=== PATIENT | male | born 1935 | race Caucasian/White ===

== ENCOUNTER 2017-01-27 08:18 | Day surgery (SDC) | payer MEDICARE, OTHER ==
[2017-01-27] VITALS (8 sets, daily range): BP systolic 127–153; BP diastolic 76–99; PULSE 67–85; RESP 20; TEMP 97.7–97.8; O2SAT 93–95
[~2017-01-27] VITALS: Ht 177.8 cm; Wt 86.8 kg
[~2017-01-27 08:18] MED LIST: ASPI81TA81 PO; BUTATAB6 PO; BUTR10DI T-DERMAL; CARD300C5 PO; CHOL1CAP14 PO; FLUTI110I INH; HYDR10TA65 PO; HYDR12.57 PO; MULTTAB12 PO; OMEG12002 PO; PROB1TAB PO; TIRO150C PO; VENTAER INH; ZOFR8TAB4 SL; [UNRECOGNIZED DRUG - CODE] PO
[2017-01-27] MEDS ORDERED: DILT1TAB22 PO (08:43)
[2017-01-27] MEDS ORDERED: VITA500T4 PO (08:43)
[2017-01-27] MEDS ORDERED: SODIUM CHLOR 0.9% 1000 ML IV SCH (09:00)
[2017-01-27] MEDS ORDERED: LIDOCAINE HCL 1% 20 ML VIAL ONE (10:56)
[2017-01-27] MEDS ORDERED: MIDAZOLAM HCL 5 MG/5 ML VIAL ONE (11:36)
[2017-01-27] MEDS ORDERED: fentaNYL CITRATE 250 MCG/5 ML AMP ONE (11:37)
--- NOTE | 2017-01-27 12:43 | RADRPT ---
EXAM DATE/TIME: 01/27/2017 11:40 [facility] COMPARISON: No previous studies available for comparison. Prior outside chest CT was reviewed. INDICATIONS : Right pleural mass. SEDATION TIME: 30 minutes BIOPSY SITE: Right pleural mass MEDICATION(S): 1.) 2 mg midazolam (Versed) IV 2.) 100 mcg fentanyl (Sublimaze) IV DEVICE(S): 1.) 18 gauge Alexander blunt needle 2.) 20 gauge Temno core biopsy needle MEDICAL HISTORY : Chronic obstructive pulmonary disease. Hypertension. prostate cancer SURGICAL HISTORY : None. ENCOUNTER: Initial ACUITY: 1 day PAIN SCORE: 0/10 LOCATION: Right upper chest A total of five core specimen(s) were obtained and sent to the laboratory for pathologic evaluation. PROCEDURE: 1. CT guided pleural right biopsy. 2. Conscious sedation with continuous EKG and oximetry monitoring. 3. EKG and oximetry remained stable throughout the procedure. Prior to the procedure informed consent was obtained. The patient's prior outside chest CT was review ed. Using automated exposure control and adjustment of the mA and/or kV according to patient size, radiat ion dose was kept as low as reasonably achievable to obtain optimal diagnostic quality images. The site was prepped in a sterile fashion. Full sterile technique was used, including cap, mask, aroldo rile gloves and gown and a large sterile sheet. Hand hygiene and 2% chlorhexidine and/or betadine/al cohol prep was utilized per protocol for cutaneous antisepsis. The skin and subcutaneous tissues wer e infiltrated with local anesthetic solution. With CT guidance the pleural based densely calcified mass was localized in the superior right hemitho rax. Biopsy was performed using the prescribed needle as above. Adequate hemostasis was obtained wit h compression at the puncture site.Follow-up CT scan reveals no hemorrhage or pneumothorax. There is trace pleural air. The patient tolerated the procedure well and there were no complications. The patient was returned to the Radiology Outpatient Unit in stable condition. CONCLUSION: Uncomplicated CT guided biopsy of a pleural-based calcified mass in the superior right hemithorax. Manuel Dangelo MD on January 27, 2017 at 12:40 Board Certified Radiologist. This report was verified electronically.
[2017-01-27] MEDS ORDERED: oxyCODONE/ACETAMINOPHEN 5 MG/325 MG TAB PO PRN (13:00)
--- NOTE | 2017-01-27 13:57 | RADRPT ---
EXAM DATE/TIME: 01/27/2017 13:26 [facility] COMPARISON: CHEST SINGLE AP, August 15, 2013, 5:56. CT NEEDLE BIOPSY PLEURA, RIGHT, January 27, 2017, 11:40. INDICATIONS : Status post right lung biopsy. MEDICAL HISTORY : Hypertension. Chronic obstructive pulmonary disease. SURGICAL HISTORY : Pacemaker. ENCOUNTER: Subsequent ACUITY: 1 day PAIN SCORE: 2/10 LOCATION: Right shoulder. FINDINGS: No evidence of pneumothorax. There is a partially calcified pleural-based mass in the right upper shelby g which is unchanged compared to the prior chest x-ray. Chronic interstitial changes bilaterally. Hea rt size is stable. Left-sided pacemaker. CONCLUSION: No pneumothorax. Delta Morrissey MD on January 27, 2017 at 13:55 Board Certified Radiologist. This report was verified electronically.
--- NOTE | 2017-01-27 15:25 | RADRPT ---
EXAM DATE/TIME: 01/27/2017 14:37 [facility] COMPARISON: CHEST EXPIRATION ONLY, January 27, 2017, 13:26. INDICATIONS : Status post right lung biopsy. MEDICAL HISTORY : Hypertension. Chronic obstructive pulmonary disease SURGICAL HISTORY : Pacemaker. ENCOUNTER: Subsequent ACUITY: 1 day PAIN SCORE: 2/10 LOCATION: Right chest FINDINGS: Portable upright expiratory view of the chest demonstrates no pneumothorax following biopsy of the pl eural-based calcified mass in the superior right hemithorax. CONCLUSION: No pneumothorax. Manuel Dangelo MD on January 27, 2017 at 15:22 Board Certified Radiologist. This report was verified electronically.
== END 2017-01-27 15:55 | disposition home or self-care (01) ==
LOC: HRAD 08:18 → HRIP 08:19 → HRAD 15:55
PROVIDERS: ATTEND Family Medicine
DX: R91.8 Other nonspecific abnormal finding of lung field (principal); I10 Essential (primary) hypertension; J44.9 Chronic obstructive pulmonary disease, unspecified
CPT/HCPCS: 32400; 71010; 77012; 88305; 99152; 99153; J2250; J3010; 88313

== ENCOUNTER → 2017-01-28 | Outpatient (CLI) | payer MEDICARE, OTHER ==
[~2017-01-28] MED LIST changes: -CARD300C5 PO; +DILT1TAB22 PO; -FLUTI110I INH; -OMEG12002 PO; -VENTAER INH; +VITA500T4 PO; -ZOFR8TAB4 SL; -[UNRECOGNIZED DRUG - CODE] PO
--- NOTE | 2017-01-28 12:42 | RADRPT ---
EXAM DATE/TIME: 01/28/2017 11:24 [facility] COMPARISON: No previous studies available for comparison. INDICATIONS : Short of breath. Patient had lung biopsy yesterday. MEDICAL HISTORY : Chronic obstructive pulmonary disease. Hypertension. prostate cancer SURGICAL HISTORY : None. ENCOUNTER: Initial ACUITY: 1 day PAIN SCORE: 0/10 LOCATION: Bilateral chest FINDINGS: There is a bi-lead pacemaker in place from the left subclavian approach. The heart size is normal. Th ere is a peripheral mass seen at the superior posterior lateral right chest. A pneumothorax is not se en. The lungs are fairly clear. There is a dextrocurvature of the thoracic spine. Spurs are seen in t he thoracic spine. CONCLUSION: No acute abnormality is seen. There is a mass at the right upper chest. Manuel Montelongo MD on January 28, 2017 at 12:36 Board Certified Radiologist. This report was verified electronically.
== END ==
LOC: HRAD 11:07
PROVIDERS: ATTEND Radiology Body Imaging
DX: R06.02 Shortness of breath (principal)
CPT/HCPCS: 71020

== ENCOUNTER 2018-08-22 05:45 | Inpatient (IN) ==
[2018-08-22 06:20] LABS: Baso % (Auto) 0.5 % (0.0-2.0); Eos # (Auto) 0.2 th/mm3 (0.0-0.4); Eos % (Auto) 3.7 % (0.0-4.0); Hemoglobin 12.7 gm/dL (13.0-17.0); Lymph # (Auto) 1.9 th/mm3 (1.0-4.8); Lymph % (Auto) 34.4 % (9.0-44.0); Mean Corpuscular HGB Conc 35.3 % (32.0-36.0); Mean Corpuscular Hemoglobin 35.2 pg (27.0-34.0); Mean Corpuscular Volume 99.7 fL (80.0-100.0); Mean Platelet Volume 8.6 fL (7.0-11.0); Mono # (Auto) 0.7 th/mm3 (0.0-0.9); Mono % (Auto) 12.9 % (0.0-8.0); Neut # (Auto) 2.7 th/mm3 (1.8-7.7); Neut % (Auto) 48.5 % (16.0-70.0); Platelet Count 187 th/mm3 (150-450); Red Blood Count 3.61 mil/mm3 (4.50-5.90); Red Cell Distribution Width 13.5 % (11.6-17.2); White Blood Count 5.5 th/mm3 (4.0-11.0)
[2018-08-22 06:26] LABS: Activated Partial Thrombo Time 23.9 sec (23.4-31.7); INR 1.1 Ratio; Prothrombin Time 10.7 sec (9.8-11.6)
--- NOTE | 2018-08-22 06:33 | ED ---
HPI General Chief Complaint: Chest Pain Stated Complaint: chest pain Time Seen by Provider: 08/22/18 05:51 Source: patient and EMS Mode of arrival: EMS Limitations: no limitations History of Present Illness HPI narrative: 83-year-old male patient with history of pacemaker, A. fib status post ablation, hypertension, COPD, presents to the ER today because he started having mid back pains with radiation to the chest that started last night. He states that it was sort of sudden and initiation and is currently a 5 out of 10, constant. He does not know of any alleviating or exacerbating factors. He denies any shortness of breath but states he does have some nausea. Modifying Factors: None Associated Signs & Symptoms: Back pains with radiation to the chest Risk Factors: None Related Data Home Medications Medication Instructions Recorded Confirmed albuterol sulfate 2 puff INHALATION Q6H PRN 05/21/18 08/22/18 aspirin [Aspirin Low Dose] 81 mg PO DAILY 05/21/18 08/22/18 buprenorphine [Butrans] 1 patch TRANSDERMAL QWEEK 05/21/18 08/22/18 [id number] 1 cap PO HS PRN 05/21/18 08/22/18 [Fioricet] cholecalciferol (vitamin D3) 5,000 unit PO DAILY 05/21/18 08/22/18 [Vitamin D3] cyanocobalamin (vitamin B-12) 500 mcg PO DAILY 05/21/18 08/22/18 denosumab [Prolia] 60 mg SUB-Q [id number] 05/21/18 08/22/18 diltiazem HCl 300 mg PO DAILY 05/21/18 08/22/18 fluticasone-salmeterol [Advair 1 inh INHALATION BID 05/21/18 08/22/18 Diskus] hydrochlorothiazide 25 mg PO DAILY 05/21/18 08/22/18 levothyroxine 125 mcg PO DAILY 05/21/18 08/22/18 multivitamin 1 tab PO DAILY 05/21/18 08/22/18 prednisone 5 mg PO BID 05/21/18 08/22/18 Allergies Allergy/AdvReac Type Severity Reaction Status Date / Time clonazepam Allergy Severe Confusion Verified 05/21/18 10:07 hydromorphone Allergy Severe Hallucinati Verified 09/21/18 10:07 ons penicillin G Allergy Severe FLULIKE Verified 05/21/18 10:07 SYMPTOMS Ubqvxka-Ecr-Khv Reductase Allergy Unknown Unknown Verified 05/21/18 10:07 Inhibitor Review of Systems ROS: all other systems reviewed are negative [facility] Medical History Medical History Adrenal insufficiency (Acute) Allergic asthma (Acute) Allergic rhinitis (Acute) Aortic stenosis (Acute) COPD (chronic obstructive pulmonary disease) (Acute) Chronic insomnia (Acute) Degenerative disc disease (Acute) Hiatal hernia (Acute) History of TIA (transient ischemic attack) (Acute) History of colonic polyps (Acute) History of peptic ulcer disease (Acute) Hypertension (Acute) Hypothyroidism (Acute) Lipomatosis (Acute) Lumbar spondylosis (Acute) Osteoporosis (Acute) Pacemaker (Acute) Prostate cancer (Acute) Spinal stenosis (Acute) Surgical History Surgical History History of cataract removal with insertion of prosthetic lens (Acute) History of tonsillectomy and adenoidectomy (Acute) S/P dilatation of esophageal stricture (Acute) Status post ablation of atrial fibrillation (Acute) Social History Social History Second Hand Smoke Exposure: No Smoking Status: Never smoker How Often Do You Have a Drink Containing Alcohol: Never Recent Travel in [facility] within the Last 8 Weeks: No Recent Out of Country Travel within the Last 8 Weeks: No Immunization History Tetanus Immunization: Unsure Exam Narrative Exam Narrative: GENERAL: Well-developed elderly white male patient currently and moderate distress. Awake and oriented x3. SKIN: Focused skin assessment warm/mildly diaphoretic. HEAD: Atraumatic. Normocephalic. EYES: Pupils equal and round. No scleral icterus. No injection or drainage. ENT: No nasal bleeding or discharge. Mucous membranes pink and moist. NECK: Trachea midline. No JVD. CARDIOVASCULAR: Regular rate and rhythm. No murmur appreciated. Pulses are present and equal bilaterally. RESPIRATORY: No accessory muscle use. Clear to auscultation. Breath sounds equal bilaterally. GASTROINTESTINAL: Abdomen soft, non-tender, nondistended. Hepatic and splenic margins not palpable. MUSCULOSKELETAL: No obvious deformities. No clubbing. No cyanosis. No edema. NEUROLOGICAL: Awake and alert. No obvious cranial nerve deficits. Motor grossly within normal limits. Normal speech. PSYCHIATRIC: Appropriate mood and affect; insight and judgment normal. Course Consultations Consultation #1: dr ricks agrees to observation Initial Documented Vital Signs Temperature 97.5 F L 08/22/18 05:47 Pulse Rate 70 08/22/18 05:47 Respiratory Rate 16 08/22/18 05:47 Blood Pressure 156/93 H 08/22/18 05:47 Pulse Oximetry 95 08/22/18 05:47 Last Documented Vital Signs Temperature 97.5 F L 08/22/18 05:47 Pulse Rate 70 08/22/18 09:56 Respiratory Rate 22 08/22/18 09:56 Blood Pressure 215/106 H 08/22/18 09:56 Pulse Oximetry 96 08/22/18 09:56 Sign Out Sign Out Data: Patient Sign Out occurred on 08/22/18 at 07:12. Patient's care was discussed, and care was transferred from Sindi Menchaca MD to Zakia Krishnamurthy MD. Sign Out Comment: CTA is ordered for the patient. Planning to admit for further evaluation. Case is signed out to oncoming physician at 7 AM. Last updated by Sindi Menchaca MD at 08/22/18 06:48 Post-Handoff Eval: CTA shows masses on his chest which are likely chronic and will need to be followed up outpatient. There is no dissection. There is chronic compression deformity at L3. Patient notes pain mainly to his low back that rotates around to his upper abdomen. Will discuss with his primary care physician about observation for cardiac markers and pain control of intractable back pain Medical Decision Making MDM Narrative Medical decision making narrative: Chest x-ray did not show any signs of acute pulmonary processes. Cardiac enzymes are negative. Patient was given aspirin and nitroglycerin by EMS. In the ER, he reported further chest pains and nausea and additional nitroglycerin as well as Zofran was given. he is appearing more diaphoretic in the ER and considering his type of pain, a CTA was ordered to rule out dissection. Planning to admit for further evaluation. Medical Screen Exam Complete: Yes Emergency Medical Condition: Yes Differential Diagnosis Differential Diagnosis: ACS versus dysrhythmias versus muscular skeletal versus aortic dissection Lab Data Lab results reviewed: Yes I reviewed the patient's lab results. Result diagrams: 08/22/18 06:00 08/22/18 06:00 Lab Results 08/22/18 08/22/18 08/22/18 Range/Units 06:00 06:00 06:00 WBC 5.5 (4.0-11.0) th/mm3 RBC 3.61 L (4.50-5.90) mil/mm3 Hgb 12.7 L (13.0-17.0) gm/dL Hct 36.0 L (39.0-51.0) % MCV 99.7 (80.0-100.0) fL MCH 35.2 H (27.0-34.0) pg MCHC 35.3 (32.0-36.0) % RDW 13.5 (11.6-17.2) % Plt Count 187 (150-450) th/mm3 MPV 8.6 (7.0-11.0) fL Neut % (Auto) 48.5 (16.0-70.0) % Lymph % (Auto) 34.4 (9.0-44.0) % Billings % (Auto) 12.9 H (0.0-8.0) % Eos % (Auto) 3.7 (0.0-4.0) % Baso % (Auto) 0.5 (0.0-2.0) % Neut # (Auto) 2.7 (1.8-7.7) th/mm3 Lymph # (Auto) 1.9 (1.0-4.8) th/mm3 Billings # (Auto) 0.7 (0.0-0.9) th/mm3 Eos # (Auto) 0.2 (0.0-0.4) th/mm3 Baso # (Auto) 0.0 (0.0-0.2) th/mm3 WBC Differential . Differential Comment Auto diff final PT 10.7 (9.8-11.6) sec INR 1.1 Ratio APTT 23.9 (23.4-31.7) sec Sodium 143 (136-145) meq/L Potassium 3.4 L (3.5-5.1) meq/L Chloride 103 (98-107) meq/L Carbon Dioxide 32.4 H (21.0-32.0) meq/L Anion Gap 8 (5-15) meq/L BUN 23 H (7-18) mg/dL Creatinine 0.99 (0.60-1.30) mg/dL Estimated GFR 72 L (>89) mL/min Random Glucose 111 H (74-106) mg/dL Calcium 9.1 (8.5-10.1) mg/dL Total Bilirubin 0.4 (0.2-1.0) mg/dL Direct Bilirubin (0.0-0.2) mg/dL Indirect Bilirubin (0.0-0.8) mg/dL AST 32 (15-37) U/L ALT 38 (12-78) U/L Alkaline Phosphatase 36 L (45-117) U/L Total Creatine Kinase (39-308) U/L Troponin I 0.04 (0.02-0.05) ng/mL Total Protein 6.6 (6.4-8.2) g/dL Albumin 3.6 (3.4-5.0) g/dL Lipase (73-393) U/L 08/22/18 08/22/18 Range/Units 06:00 06:00 WBC (4.0-11.0) th/mm3 RBC (4.50-5.90) mil/mm3 Hgb (13.0-17.0) gm/dL Hct (39.0-51.0) % MCV (80.0-100.0) fL MCH (27.0-34.0) pg MCHC (32.0-36.0) % RDW (11.6-17.2) % Plt Count (150-450) th/mm3 MPV (7.0-11.0) fL Neut % (Auto) (16.0-70.0) % Lymph % (Auto) (9.0-44.0) % Bill[place] % (Auto) (0.0-8.0) % Eos % (Auto) (0.0-4.0) % Baso % (Auto) (0.0-2.0) % Neut # (Auto) (1.8-7.7) th/mm3 Lymph # (Auto) (1.0-4.8) th/mm3 Billings # (Auto) (0.0-0.9) th/mm3 Eos # (Auto) (0.0-0.4) th/mm3 Baso # (Auto) (0.0-0.2) th/mm3 WBC Differential Differential Comment PT (9.8-11.6) sec INR Ratio APTT (23.4-31.7) sec Sodium (136-145) meq/L Potassium (3.5-5.1) meq/L Chloride (98-107) meq/L Carbon Dioxide (21.0-32.0) meq/L Anion Gap (5-15) meq/L BUN (7-18) mg/dL Creatinine (0.60-1.30) mg/dL Estimated GFR (>89) mL/min Random Glucose (74-106) mg/dL Calcium (8.5-10.1) mg/dL Total Bilirubin 0.4 (0.2-1.0) mg/dL Direct Bilirubin 0.1 (0.0-0.2) mg/dL Indirect Bilirubin 0.3 (0.0-0.8) mg/dL AST 33 (15-37) U/L ALT 40 (12-78) U/L Alkaline Phosphatase 37 L (45-117) U/L Total Creatine Kinase 307 Cancelled (39-308) U/L Troponin I (0.02-0.05) ng/mL Total Protein 6.7 (6.4-8.2) g/dL Albumin 3.7 (3.4-5.0) g/dL Lipase 141 (73-393) U/L Imaging Data Attestation: I personally reviewed and interpreted this imaging study as follows : Radiologist's impression: Chest X-Ray 08/22/18 05:51 CONCLUSION: Stable single view the chest. No infiltrate or mass Thoracic Aorta CT 08/22/18 06:31 CONCLUSION: 1. Atherosclerotic change seen throughout the arterial system without a significant aneurysm or dissection seen. 2. 1.2 cm mass in the left lower lobe. There is also a smaller mass in the inferior right upper lobe. The 1.2 cm left lower lobe mass was present on prior CT examination from 2016. One could consider continued surveillance with noncontrast CT examination versus a PET scan at some point. 3. Multiple pleural plaques with coarse calcifications. The largest mass measures up to 5.9 cm. This is clearly increased in size since the prior exam. 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 The enlargement of the visualized mass confirms progression. 4. Persistent compressive changes at the L3 vertebral body. There is degenerative change in the lumbar spine. ECG Data Attestation: I personally reviewed and interpreted this ECG as follows: Interpretation: EKG shows paced rhythm at a rate of 70 bpm. Discharge Plan Discharge Disposition Patient Disposition: ED Admit(ED Internal Use Only) Discharge Order Discharge Orders: ED Use Only Admit Order (Routine); Ordered 08/22/18 Ordered By: Zakia Krishnamurthy Discharge Details Diagnosis: Atypical chest pain Physicians Team ED Provider: Zakia Krishnamurthy Primary Care Provider: Owen Ricks Rxs /Orders / Referrals /Forms Prescriptions: No Action multivitamin Tablet 1 tab PO DAILY RF: 0 fluticasone-salmeterol [Advair Diskus] 250-50 mcg/dose Blister With Device 1 inh INHALATION BID RF: 0 prednisone 5 mg Tablet 5 mg PO BID RF: 0 diltiazem HCl 300 mg Capsule,Extended Release 24 Hr 300 mg PO DAILY RF: 0 aspirin [Aspirin Low Dose] 81 mg Tablet,Delayed Release (Dr/Ec) 81 mg PO DAILY RF: 0 cyanocobalamin (vitamin B-12) 500 mcg Tablet 500 mcg PO DAILY RF: 0 levothyroxine 125 mcg Tablet 125 mcg PO DAILY RF: 0 hydrochlorothiazide 25 mg Tablet 25 mg PO DAILY RF: 0 albuterol sulfate 90 mcg/actuation Hfa Aerosol Inhaler 2 puff INHALATION Q6H PRN (Reason: Shortness Of Breath) RF: 0 cholecalciferol (vitamin D3) [Vitamin D3] 5,000 unit Tablet 5,000 unit PO DAILY RF: 0 denosumab [Prolia] 60 mg/mL Syringe 60 mg SUB-Q [id number] RF: 0 buprenorphine [Butrans] 10 mcg/hour Patch Weekly 1 patch TRANSDERMAL QWEEK RF: 0 [id number] [Fioricet] 50-300-40 mg Capsule 1 cap PO HS PRN (Reason: Pain) RF: 0 Discharge Instructions Patient Printed Instructions: Chest Pain (ED) Status ED Status: Admitted Observation Patient
[2018-08-22 06:38] LABS: Albumin 3.6 g/dL (3.4-5.0); Anion Gap 8 meq/L (5-15); Aspartate Aminotransferase 32 U/L (15-37); Blood Urea Nitrogen 23 mg/dL (7-18); Calcium 9.1 mg/dL (8.5-10.1); Carbon Dioxide 32.4 meq/L (21.0-32.0); Chloride 103 meq/L (98-107); Glomerular Filtration Rate 72 mL/min (>89); Glucose,Random 111 mg/dL (74-106); Potassium 3.4 meq/L (3.5-5.1); Sodium 143 meq/L (136-145)
[2018-08-22 06:39] LABS: Alanine Aminotransferase 38 U/L (12-78)
[2018-08-22 06:43] LABS: Alkaline Phosphatase 36 U/L (45-117); Total Protein 6.6 g/dL (6.4-8.2); Troponin I 0.04 ng/mL (0.02-0.05)
--- NOTE | 2018-08-22 06:43 | XR ---
EXAM DATE: 08/22/2018 6:17 AM EST AGE/SEX: 83 years / Male INDICATIONS: Chest and back pain suddenly this morning. CLINICAL DATA: This is the patient's initial encounter. Patient reports that signs and symptoms have been present for 1 day and indicates a pain score of 10/10. MEDICAL/SURGICAL HISTORY: Chronic obstructive pulmonary disease. Hypertension. Hypothyroidism . Asthma. Aortic stenosis. Hiatal hernia. Degenerative disc disease. Colonic polyps. Peptic ulcer di sease. TIA. Lumbar spondylosis. Prostate Cancer. Spinal stenosis. Pacemaker. Tonsillectomy. Catarac t removal. Dilitation of esophageal stricture. Cardiac ablation. COMPARISON: [facility], XR CHEST UPRIGHT, SINGLE VIEW, 03/16/2018. . FINDINGS: A single AP view of the chest demonstrates the lungs to be symmetrically aerated without evidence of mass, infiltrate or effusion. The cardiomediastinal contours are unremarkable. Osseous structures a re intact. Pleural-based density in the right upper lobe is unchanged. Left subclavian dual lead pace r in good position. There is quite tortuous CONCLUSION: Stable single view the chest. No infiltrate or mass Electronically signed by: Eliseo Hernandez MD Board Certified Radiologist 08/22/2018 6:42 AM EST
[2018-08-22] MEDS ORDERED: Morphine Sulfate Inj 2 MG/ML Vial IV.PUSH ONE (06:50)
[2018-08-22] MEDS ORDERED: Morphine Inj 4 MG/ML Vial IV.PUSH ONE ×2 (07:15→10:15)
--- NOTE | 2018-08-22 09:11 | CT ---
EXAM DATE: 08/22/2018 8:37 AM EST AGE/SEX: 83 years / Male INDICATIONS: Mid back pain radiating to chest CLINICAL DATA: This is the patient's initial encounter. Patient reports that signs and symptoms have been present for 1 day and indicates a pain score of 6/10. MEDICAL/SURGICAL HISTORY: Chronic obstructive pulmonary disease. Hiatal hernia. Transient ischemi c attack. Aortic Stenosis, Peptic Ulcer, Hypertension, Hypothyroid, Prostate Cancer Pacemaker. Ton sillectomy. RADIATION DOSE: 9.13 CTDI (mGy) COMPARISON: [facility], CT ABDOMEN AND PELVIS W/ CONTRAST, 04/23/2018. POI, CT THORACIC SPINE W/O CONTR AST, 04/10/2016. . TECHNIQUE: Volumetric scanning was performed using a multi-row detector CT scanner during bolus infu yoly of 100ML ml Omnipaque 350 (iohexol) nonionic water-soluble contrast as a single exam dose. The data was post processed with a variety of visualization algorithms including full volume maximum int ensity projection, multi-planar sliding thin slab reformation, curved planar reformation, and surface rendering techniques. Using automated exposure control and adjustment of the mA and/or kV according to patient size, radiation dose was kept as low as reasonably achievable to obtain optimal diagnosti c quality images. DICOM format image data is available electronically for review and comparison. FINDINGS: Lungs: There is a 1.2 cm mass seen in the posterior medial left lower lobe. This was present on prio r CT of the thoracic spine performed on 04/10/2016 and does not appear significantly changed in size o r configuration. There is also a small 3 mm nodule seen in the anterior lateral inferior aspect of th e right upper lobe just above the minor fissure. No possible masses are seen within the lungs. There are multiple pleural-based masses with coarse calcifications seen in the right upper and midlung. The largest pleural-based calcified mass is seen at the posterior lateral right upper chest measuring 5. 6 x 2.7 x 5.9 cm. There also appears to be a smaller pleural-based mass at the superior medial left u pper lobe. There is ill-defined increased density seen at the posterior lower lobes bilaterally being more prominent on the right likely related to atelectasis. There is some thickening of the inferior aspect of the major fissures. Mediastinum: No abnormally enlarged lymph nodes by CT criteria. No axillary or hilar abnormalities a re identified. There is a pectus Ethibond deformity of the sternum. Abdomen: The liver and spleen are free of focal defects. The gallbladder and pancreas demonstrate no abnormality. The adrenal glands are normal. The kidneys demonstrate no evidence of solid renal mass or hydronephrosis. No free fluid or abdominal masses are identified. No para-aortic adenopathy is see n. Scattered colonic diverticula are seen particularly in the sigmoid colon. There is chronic sanju sive changes at the L3 vertebral body. These were present on the prior CT examination from 04/23/2018. There is degenerative change in the lumbar spine. Pelvis: No evidence of free fluid or pelvic mass. No abnormally enlarged inguinal or retroperitoneal lymph nodes are present. The bladder is unremarkable. There appear to be marker seeds in the prostat e. Thoracic Aorta: The thoracic aortic root is normal with normal branching of the great vessels. Ther e is no evidence of aneurysm or dissection. There is increased density seen along the left lateral as pect of the aorta likely related to atherosclerotic change. Scattered atherosclerotic calcifications are seen including calcifications of the coronary arteries. Abdominal Aorta: The aorta is normal in caliber without aneurysm or dissection. The renal arteries are patent bilaterally. The proximal celiac and superior mesenteric arteries are patent and normal i n diameter. Pelvic Vessels: The internal iliac and external iliac vessels are patent without aneurysm or stenosi s. CONCLUSION: 1. Atherosclerotic change seen throughout the arterial system without a significant aneurysm or diss ection seen. 2. 1.2 cm mass in the left lower lobe. There is also a smaller mass in the inferior right upper lobe . The 1.2 cm left lower lobe mass was present on prior CT examination from 2015. One could consider c ontinued surveillance with noncontrast CT examination versus a PET scan at some point. 3. Multiple pleural plaques with coarse calcifications. The largest mass measures up to 5.9 cm. This is clearly increased in size since the prior exam. These could be related to asbestos-related pleura l plaques. The enlargement of the visualized mass confirms progression. 4. Persistent compressive changes at the L3 vertebral body. There is degenerative change in the lumb ar spine. Electronically signed by: Manuel Montelongo MD Board Certified Radiologist 08/22/2018 9:09 AM EST
[2018-08-22] MEDS ORDERED: Ketorolac Inj 30 MG/ML (IVP) Vial IV.PUSH ONE (09:30)
[2018-08-22 10:07] LABS: Alanine Aminotransferase 40 U/L (12-78); Albumin 3.7 g/dL (3.4-5.0); Aspartate Aminotransferase 33 U/L (15-37); Lipase 141 U/L (73-393)
[2018-08-22 10:09] LABS: Alkaline Phosphatase 37 U/L (45-117); Creatine Kinase 307 U/L (39-308); Total Protein 6.7 g/dL (6.4-8.2)
[2018-08-22 10:49] LABS: Bilirubin,Urine Negative (Negative); Clarity,Urine Clear (Clear); Color,Urine Straw (Yellw/Straw); Glucose,Urine (UA) Negative (Negative); Leukocyte Esterase,Urine Negative (Negative); Mucus,Urine Few /lpf (Occasional); Nitrite,Urine Negative (Negative); Specific Gravity,Urine 1.029 (1.002-1.035)
[2018-08-22] MEDS ORDERED: Acetaminophen 325 MG Tablet PO PRN (10:54)
[2018-08-22] MEDS ORDERED: Bisacodyl 10 MG Supp RECTAL PRN (10:54)
[2018-08-22] MEDS ORDERED: Labetalol HCl Inj 100 MG/20 ML Vial IV.PUSH ONE (11:03)
[2018-08-22] MEDS: hydroCHLOROthiazide 25 MG Tablet PO SCH (11:48)
[2018-08-22] MEDS ORDERED: Labetalol HCl Inj 100 MG/20 ML Vial IV.PUSH PRN (11:58)
[2018-08-22] MEDS ORDERED: Hydrocortisone Sod Succinate 100 MG Vial IV.PUSH ONE (12:00)
[2018-08-22] MEDS: Budesonide-Formoterol 160/4.5 MCG 6 GM Inhaler INH SCH ×2 (12:10→21:32)
[2018-08-22] MEDS: dilTIAZem CD 300 MG Capsule PO SCH (12:15)
[2018-08-22] MEDS: Enoxaparin Inj 30 MG/0.3 ML Syringe SQ SCH (12:24)
[2018-08-22] MEDS: Enoxaparin Inj 40 MG/0.4 ML Syringe SQ SCH (12:24)
[2018-08-22] MEDS ORDERED: Morphine Inj 4 MG/ML Vial IV.PUSH PRN (12:34)
[2018-08-22] MEDS ORDERED: IBUPROFEN PO PRN (12:35)
[2018-08-22] MEDS ORDERED: HYDROCODONE PO PRN (12:35)
--- NOTE | 2018-08-22 14:20 | MH ---
cc: Owen Ricks MD DATE OF ADMISSION: 08/22/2018 ADMITTING DIAGNOSES: 1. Hypertensive urgency. 2. Lower chest, epigastric and thoracic back pain. HISTORY OF PRESENT ILLNESS: This 83-year-old white male well known to the undersigned physician has a complex medical history including history of atrial fibrillation, status post coronary ablation, COPD, chronic back pain due to DJD and disk disease and hypothyroidism. The patient states that he awoke around 5 a.m. this morning with severe mid thoracic back pain, which initially was localized to the midline and then over the period of the next couple hours, spread bilaterally and around to the epigastric and lower chest area. The patient had no shortness of breath, diaphoresis, nausea or vomiting initially. He became concerned and contacted EMS and was transferred to this facility for further evaluation and treatment. The patient denies eating any unusual foods. His bowels have been moving regularly with his last bowel movement yesterday. He denies any melena, hematochezia, diarrhea or constipation. He has had no change in his voiding pattern and denies any hematuria. He had some nausea after arriving in the emergency department and states that he caused himself to have a small amount of emesis to relieve the pressure in his epigastric area, which seemed to help somewhat. The patient denies any lightheadedness, dizziness, orthopnea, PND, lower extremity edema. He has had no exertional angina. The patient is followed regularly by Dr. Blackburn for cardiology. In the emergency department, the patient initially had a moderately elevated blood pressure, but his blood pressure has increased dramatically with systolic readings greater than 200. He was given IV Vasotec in the emergency department. He also had persistent pain, which initially was treated with morphine sulfate. He had a total of 8 mg IV with some relief of the pain, but it was still severe with a rating greater than 8. The patient was given Toradol subsequently and he states that he is more comfortable at this point. PAST MEDICAL HISTORY: Significant for a history of prostate cancer. He is status post external beam radiation therapy. Recently, he has had an increasing PSA. He is followed by Dr. Mattson for urology and Dr. Ty for hematology. He has a history of atrial fibrillation and he is status post coronary ablation as well as sick sinus syndrome, status post pacemaker placement, and aortic stenosis. He has a history of allergic rhinitis, hypothyroidism, adrenal insufficiency for which he receives steroids each day, hypertension, COPD, lumbar spondylosis, spinal stenosis and degenerative disk disease, allergic asthma, history of TIA, chronic insomnia, lipomatosis with multiple palpable lipomas, hiatal hernia, history of GERD with esophageal strictures. He had esophageal dilation in 2013. He has a history of peptic ulcer disease as well as colonic polyps and mild atherosclerotic heart disease by cardiac catheterization in 2001. He also has history of osteoporosis for which he receives Prolia injections. He is status post pacemaker placement in 2012, status post tonsillectomy and adenoidectomy, status post left cataract removal with lens implant, status post LASIK procedure years ago and in 2018, he had a right cataract removal with lens implant. CURRENT MEDICATIONS: 1. Vitamin B12 at 500 mcg daily. 2. Vitamin D3 at 5000 international units daily. 3. Advair Diskus 250/50 mcg 1 inhalation twice a day. 4. Alprazolam 0.5 mg 1/2 to 1 tablet at bedtime as needed for insomnia. 5. Levothyroxine 137 mcg daily. 6. Albuterol HFA inhaler 2 puffs every 6 hours as needed for shortness of breath. 7. Butrans patch 10 mcg per hour apply 1 patch weekly. 8. Hydrochlorothiazide 25 mg daily. 9. Prednisone 5 mg twice daily. 10. Prolia 60 mg subcutaneously every 6 months. 11. Diltiazem CD 300 mg 1 capsule daily. 12. Pantoprazole 40 mg daily. 13. Naproxen sodium 220 mg 2 tablets every 12 hours as needed. 14. Fluticasone propionate nasal spray 50 mcg per actuation 2 sprays each nostril daily. 15. Fioricet 1 tablet at bedtime as needed for tension headaches. ALLERGIES: HE HAS MULTIPLE ALLERGIES AND INTOLERANCES, WHICH INCLUDE: 1. INTOLERANCE TO SHINGRIX IMMUNIZATION, WHICH CAUSED NASAL CONGESTION, MYALGIAS, ARTHRALGIAS AND WEAKNESS. 2. ACTONEL CAUSED GI UPSET. 3. ATORVASTATIN CAUSED MYALGIAS. 4. AUGMENTIN AND CEFUROXIME CAUSED NAUSEA AND CHEST TIGHTNESS. 5. CIPROFLOXACIN CAUSED MYALGIAS. 6. CLONAZEPAM CAUSED DIZZINESS. 7. CLONIDINE HAS AN UNKNOWN REACTION. 8. ENALAPRIL CAUSED CHEST PAIN AND SYNCOPE. 9. LOSARTAN CAUSED MYALGIAS. 10. PRAVASTATIN CAUSED BRADYCARDIA. 11. ZETIA CAUSED A RASH. FAMILY HISTORY: Positive for a father with coronary artery disease and a myocardial infarction as well as COPD. His mother had arthritis and hepatic cancer. He has a sibling with prostate cancer and type 2 diabetes. SOCIAL HISTORY: He is . He is retired. He has a previous smoking history, but does not currently smoke. He drinks alcohol occasionally on a social basis. IMMUNIZATION HISTORY: The patient had his pneumococcal vaccination on 04/22/2016. He had an influenza vaccination on 06/28/2018. PHYSICAL EXAMINATION: VITAL SIGNS: Upon arrival to the emergency department, the patient's blood pressure was 156/93 with a heart rate of 70, respirations 16, temperature 97.5 degrees Fahrenheit, oxygen saturation on room air 95%. At the current time, his blood pressure is 187/98 with a heart rate of 70, oxygen saturation on room air 95%. GENERAL: This is an overweight, elderly, white male lying in bed in mild distress due to some epigastric discomfort, but in no respiratory distress. HEENT: The pupils are equal, round and reactive to light. Extraocular movements are intact. Sclerae are anicteric. There are bilateral lens implants in place. Mouth and throat reveal moist mucous membranes. No erythema or exudates. Dentition is good. Tongue midline. NECK: Supple without lymphadenopathy, JVD, bruits or thyromegaly. CARDIOVASCULAR: Regular rate and rhythm with a 2/6 systolic murmur heard best at the right upper sternal border. LUNGS: Clear to auscultation without wheezes, rhonchi or rales, but there is mildly diminished air exchange bilaterally. ABDOMEN: Mildly distended, soft, nontender. Bowel sounds are present. No mass palpable. No hepatosplenomegaly. GENITOURINARY: Deferred. RECTAL: Deferred. LOWER EXTREMITIES: Reveal 2+ pulses. No calf tenderness. No Homans sign. No open areas or bony deformities. BACK AND SPINE: Reveal no palpable tenderness along the spinous processes, disks or paraspinous musculature. NEUROLOGIC: Nonfocal. LABORATORY DATA: The patient's comprehensive metabolic profile was significant for a potassium of 3.4. Carbon dioxide was mildly elevated at 32.4. BUN was high at 23, but creatinine 0.99. The estimated GFR was 72, which was low. Alkaline phosphatase is low at 36. Troponin was normal at 0.04. Total CK was 307, which was normal. CK-MB was 12, which is elevated, but only represents less than 4% of the total. White blood cell count 5.5, hemoglobin 12.7, hematocrit 36.0, platelet count 187,000. White blood count differential showed 48.5 polys, 34.4 lymphocytes and 12.9, monocytes. INR 1.1, aPTT 23.9. Urinalysis revealed a specific gravity of 1.029, pH 7.0, trace ketones, otherwise all the indices were negative. Single view AP chest x-ray revealed a stable single-view chest x-ray. No infiltrates or masses. The patient had a CTA of the thoracic aorta which revealed atherosclerotic changes seen throughout the arterial system without significant aneurysm or dissection. There is a 1.2 cm mass in the left lower lobe of the lung with multiple smaller masses in the inferior right upper lobe. The 1.2 cm left lower lobe mass was present on a prior CT examination from 2016. It is recommended to follow up with a noncontrast CT versus PET scan. There were multiple pleural plaques with coarse calcifications, the largest of which measures 5.9 cm, which have clearly increased in size since prior examination. This could this could be related to asbestos-related pleural plaques. The enlargement of the visualized mass confirms progression and persistent compressive changes of the L3 vertebral body. There are degenerative changes in the lumbar spine. The patient's EKG revealed an atrial paced rhythm. IMPRESSION AND PLAN: 1. This 83-year-old white male presented with a sudden onset of thoracic back pain which radiated to the epigastrium. He required 8 mg of morphine sulfate and Toradol to bring the pain under control. Possible etiologies include choledocholithiasis versus ureterolithiasis versus pancreatitis versus thoracic aortic or abdominal aortic dissection versus atypical presentation of coronary ischemia versus pulmonary embolus. At this point, we have ruled out the possibility of aortic dissection with a CTA. A CT of the chest ruled out pulmonary embolism. He has no evidence of any blood in his urine to indicate a kidney stone or ureteral stone. The patient does not have any discomfort in the right upper quadrant with palpation; however, we will consider an ultrasound of the gallbladder to evaluate further to determine if there is the presence of any stones that were not picked up by the CT scan. The patient did have a lipase performed which was within normal limits, which rules out pancreatitis. At this point, he is more comfortable. It is possible the patient has a gastric or peptic ulcer. He has been on a proton pump inhibitor. We will continue him with a proton pump inhibitor and we will monitor for any worsening of the pain again. If so, we will need to consider a gastrointestinal evaluation and consultation. 2. Hypertensive urgency. The patient's blood pressure was greater than 200 systolic during most of his stay in the emergency department. It is improving at this point. He has received intravenous Vasotec and I have ordered intravenous labetalol. We will monitor closely. We will resume his usual medications and adjust his blood pressure medicine as needed. I have consulted cardiology, Dr. Blackburn, for assistance with evaluation and treatment. With this hypertensive urgency, we will perform serial cardiac enzymes to rule out the possibility of ischemia. The patient's electrocardiograms are not helpful as they chronically reveal an atrial paced rhythm. 3. History of chronic obstructive pulmonary disease. Respiratory status appears to be stable at this point. We will monitor his oxygen saturations. The patient normally receives Advair. I have ordered Advair to be continued. He may be changed to the formulary maintenance inhaler. 4. History of adrenal insufficiency. The patient was in tremendous pain this morning and I was concerned about the possibility of an adrenal crisis from the acute distress. I have given him Solu-Cortef 50 mg intravenous now. We will resume the prednisone and monitor his clinical response. 5. Hypothyroidism. Continue with current dosage of levothyroxine. 6. Hyperlipidemia. The patient does not tolerate any of the statins. He has not been taking them for a number of years due to adverse reactions to all of them. 7. Hypokalemia. The patient will receive an oral potassium supplement. We will monitor potassium level closely. 8. Chronic back pain. The patient has a Butrans patch in place, which has only been in place now for 3 days. At this point, we will have him continue with the patch, which normally controls his pain fairly well. I have explained the plan of care with the patient, who expressed understanding. MD TANJA Borrero/karey , 12:26 PM , 12:49 PM
[2018-08-22 15:12] LABS: Troponin I 0.05 ng/mL (0.02-0.05)
[2018-08-22 15:43] VITALS: RESP 16
--- NOTE | 2018-08-22 16:19 | US ---
EXAM DATE: 08/22/2018 4:10 PM EST AGE/SEX: 83 years / Male INDICATIONS: Abdominal pain. CLINICAL DATA: This is the patient's initial encounter. Patient reports that signs and symptoms have been present for 2 days and indicates a pain score of 3/10. MEDICAL/SURGICAL HISTORY: Chronic obstructive pulmonary disease. Hypertension. Hypothyroidism . Adrenal insufficiency. Rhinitis. Aortic stenosis. Insomnia. Hiatal hernia. Polyps. Peptic ulcer di sease. TIA. Osteoporosis. Prostate cancer. Spinal stenosis. Pacemaker. Tonsillectomy. Cataract jean alisson. Adenoidectomy. Atrial fibrillation ablation. COMPARISON: [facility], CTA THOR ABD AORTA W CONTRAST W 3D, 08/22/2018. . MEASUREMENTS: Liver:__ 16.0 cm. Common Bile Duct:___ 9mm. Right Kidney:___12.0 x 4.8 x 4.6 cm. Left Kidney:___11.8 x 4.5 x 4.8 cm. Spleen:___9.3 cm. FINDINGS: Liver: The liver is mildly enlarged. Normal echogenicity without focal lesion or ductal dilatation. Portal Vein: Hepatopedal flow seen in portal vein. Common Duct: No intraluminal mass or stone visualized. Gallbladder: Cholelithiasis is noted. There is no wall thickening, pericholecystic fluid or sonograph ic Cano's sign. Pancreas: Not well visualized. Right Kidney: Increased echogenicity. No mass or hydronephrosis. Left Kidney: Increased echogenicity. No mass or hydronephrosis. Ascites: None Pleural Effusion: None Spleen: No focal lesion. Aorta: Non aneurysmal. IVC: Within normal limits Other: None. CONCLUSION: 1. Cholelithiasis. 2. Mild hepatomegaly. 3. Echogenic kidneys raising the possibility of medical renal disease. Electronically signed by: Vj Mcclain MD Board Certified Radiologist 08/22/2018 4:18 PM EST
[2018-08-22 19:35] LABS: Troponin I 0.05 ng/mL (0.02-0.05)
[2018-08-22] MEDS: predniSONE 5 MG Tablet PO SCH (21:15)
[2018-08-22] MEDS ORDERED: Petrolatum,White 4 GM STICK TOPICAL PRN (21:41)
--- NOTE | 2018-08-23 00:29 | MB ---
cc: Wily Ewing DO DATE: 08/22/2018 REASON FOR CONSULTATION: Hypertensive urgency, questionable chest pain. HISTORY OF PRESENT ILLNESS: Vj Ramos is a pleasant 83-year-old male who sees my partner Dr. Blackburn in the office and presented to [facility] Emergency Room due to severe mid thoracic back pain. The patient woke up at around 5 a.m. with severe mid thoracic back pain. He states that he was working on a generator the day before and lifting with the handles from the side, and this may have caused the initial back pain. The pain was located in the mid-section and then over a period of the next couple hours spread bilaterally around his flank area and into the epigastric area. On discussing with him, most of the pain that he felt was throughout his lower back, but on the anterior portion of his body, he points to the mid-epigastric and not really to the chest. The patient has no shortness of breath, diaphoresis, nausea or vomiting initially. As the pain was intense, he called EMS and was transferred to the emergency room. He did have some nausea upon arriving in the emergency room. The small amount of emesis did relieve some of the pressure in the epigastric area. As this pain increased his blood pressure dimple over 200. At one point when his blood pressure was significantly elevated, he was starting to feel slightly diaphoretic, and along with the back pain, it was felt that a CTA should be done to rule out a dissection. CTA was negative for a dissection. He received 8 mg of morphine with little relief but was then given Toradol and subsequently felt much better. PAST MEDICAL HISTORY: 1. Mild aortic stenosis by echocardiogram last year. 2. Prostate cancer, status post external beam radiation therapy. 3. History of atrial fibrillation. 4. Hypothyroidism. 5. Adrenal insufficiency. 6. Hypertension. 7. Chronic obstructive pulmonary disease. 8. Lumbar spondylosis. 9. Spinal stenosis with degenerative disk disease. 10. History of TIA. 11. Lipomatosis. 12. Hiatal hernia. 13. Gastroesophageal reflux disease. 14. Osteoporosis. PAST SURGICAL HISTORY: 1. Atrial fibrillation ablation. 2. Pacemaker placement (2012). 3. Esophageal dilatation (2013). 4. Tonsillectomy. 5. Bilateral cataract removal with lens implant. ALLERGIES: 1. CLONAZEPAM. 2. HYDROMORPHONE. 3. PENICILLIN. 4. STATINS. MEDICATIONS: 1. Albuterol 2 puffs every 6 hours as needed. 2. Butrans patch weekly. 3. Aspirin 81 mg daily. 4. Prednisone 5 mg b.i.d. 5. Synthroid 125 mcg daily. 6. Hydrochlorothiazide 25 mg daily. 7. Prolia 60 mg subcutaneously every 6 months. 8. Fioricet 1 cap every night as needed. 9. Advair one inhalation b.i.d. 10. Cardizem CD 300 mg daily. FAMILY HISTORY: Denies premature coronary artery disease or sudden cardiac within the family. SOCIAL HISTORY: The patient is . He has a previous smoking history but quit a number of years ago. He drinks occasionally on a social basis. REVIEW OF SYSTEMS: Fourteen systems were reviewed including osteopathic. Pertinent positives and negatives above, otherwise negative. PHYSICAL EXAMINATION: VITAL SIGNS: Temperature 98.4, heart rate 70, blood pressure 135/79, respirations 16, pulse oximetry 96% on 2 L. GENERAL: The patient appears well, in no acute distress. Alert, awake, and oriented x3. HEENT: Extraocular muscles intact. Mucous membranes moist. NECK: Supple. No JVD at 45 degrees. No carotid bruits heard bilaterally. Carotid upstroke is brisk in nature. HEART: Regular rate and rhythm. Positive first and second heart tones with a 3/6 mid to late peaking crescendo decrescendo murmur to the right sternal border. LUNGS: Clear to auscultation bilaterally. No wheezes, rales, or rhonchi. ABDOMEN: Soft, nontender, nondistended. No organomegaly noted. Lipoma is noted superior to the umbilicus for which the patient states he has multiple lipomas. EXTREMITIES: No clubbing, cyanosis, or edema. Femoral and distal pulses are intact bilaterally. NEUROLOGIC: No focal deficits. SKIN: Warm, dry and intact. OSTEOPATHIC: No kyphoscoliosis, lordosis, or paraspinal tender points. LABORATORY DATA: Hemoglobin 12.7, hematocrit 36.0, platelets 187. Potassium 3.4, BUN 23, creatinine 0.99. Troponin negative x3. Electrocardiogram (08/22/2018 at 0546): Atrial paced with a long AV delay, interventricular conduction delay. No acute ST-T wave changes. Possible old inferior myocardial infarction. Nonspecific ST-T wave changes. No significant change from 2014. IMPRESSION: 1. Musculoskeletal back pain relieved with Toradol. 2. Hypertensive urgency, most likely driven by pain. 3. History of atrial fibrillation. 4. At least moderate aortic stenosis by exam. 5. History of pacemaker placement. RECOMMENDATIONS: 1. Mr. Ramos presented with intractable back pain, which seemed to come into the anterior portion of the body and most likely in the epigastric region. 2. I was asked to rule out cardiac causes as well as consideration of chest pain. Ultimately, I do not believe that the patient is suffering from chest pain from coronary insufficiency. He states rides a stationary bike for at least 20 minutes a day with no symptoms. From a coronary standpoint, I think no further workup is necessary at this time. 3. He did have extensive elevation of his blood pressure into the 234/109 range. This is most likely due to elevated pain. Since getting his pain under control, his blood pressure has been much more controlled. For now, I would continue him on his Cardizem CD as well as hydrochlorothiazide and asked that he watch his blood pressure at home, and if elevated, then would change his medications to further treat this. 4. He previously had mild aortic stenosis on an echocardiogram last year. By exam, he appears to be in the at least moderate range. Ultimately, I feel that he is asymptomatic from this and has little to do with his current admission. I asked that he follow up with Dr. Blackburn for a repeat echo for further evaluation of his aortic valve. 5. He has history of atrial fibrillation with atrial fibrillation ablation. Per Dr. Blackburn notes, he has been discussed about anticoagulation, and he would like to continue on aspirin therapy. 6. From my standpoint, if everything is stable tomorrow, he may be discharged home for followup with Dr. Blackburn and consideration of an echocardiogram to further evaluate his aortic valve. Thank you for allowing me to see Vj Ramos. If there are any questions, please do not hesitate to call. DO TANNER Macdonald/sepideh , 11:43 PM , 12:02 AM
--- NOTE | 2018-08-23 01:55 | ECG ---
Date Performed: 08/22/2018 Time Performed: 05:46:27 PTAGE: 83 years EKG: ELECTRONIC ATRIAL PACEMAKER INTRAVENTRICULAR CONDUCTION DELAY ANTEROLATERAL MYOCARDIAL INFA RCTION ABNORMAL ECG INTERPRETATION BASED ON A DEFAULT AGE OF 40 YEARS PREVIOUS TRACING : 12/04/2013 11.12 Since the previous tracing, no significant change not ed DOCTOR: Wily Ewing Interpretating Date/Time 08/23/2018 01:54:12
[2018-08-23] MEDS ORDERED: Levothyroxine 125 MCG Tablet PO SCH (06:00)
[2018-08-23 08:03] LABS: Calcium 9.1 mg/dL (8.5-10.1); Carbon Dioxide 31.8 meq/L (21.0-32.0); Potassium 3.4 meq/L (3.5-5.1)
[2018-08-23 08:32] VITALS: TEMP 98.9
[2018-08-23] MEDS: Enoxaparin Inj 40 MG/0.4 ML Syringe SQ SCH (08:36)
[2018-08-23] MEDS: dilTIAZem CD 300 MG Capsule PO SCH (08:37)
[2018-08-23] MEDS: predniSONE 5 MG Tablet PO SCH (08:37)
[2018-08-23] MEDS: Enoxaparin Inj 30 MG/0.3 ML Syringe SQ SCH (08:37)
[2018-08-23] MEDS: hydroCHLOROthiazide 25 MG Tablet PO SCH (08:37)
[2018-08-23] MEDS: Budesonide-Formoterol 160/4.5 MCG 6 GM Inhaler INH SCH (08:38)
[2018-08-23 10:12] VITALS: PULSE 70; O2SAT 94
[2018-08-23 11:13] VITALS: BP 131/72
--- NOTE | 2018-08-23 11:15 | P.PN ---
Subjective Interval history: The patient's blood pressures come under much better control. Systolic blood pressure readings have been in the 120s and 130s. He denies any chest pain, shortness of breath, palpitations, lightheadedness or dizziness. His back pain has resolved. The patient now realizes that on the day prior to admission, he was working on a generator sitting on a low stool bending forward for an extended period of time. He believes that this exacerbated his chronic back issues and because of the severe pain. He denies any back pain at this time. He has not taken any analgesic medication since yesterday. He is ambulating independently in the room. Oral intake is good. Bowels are moving. Urine output is good. Active Medications Generic Name Dose Route Start Last Admin Trade Name Freq PRN Reason Stop Dose Admin Acetaminophen 650 mg 08/22/18 10:54 Tylenol PO Q4H PRN Temp > 100.4 Al Hydroxide/Mg Hydroxide 30 ml 08/22/18 10:54 Milk Of Magnesia Liq PO Q12H PRN Mild Constipation Albuterol 2 puff 08/22/18 11:07 Ventolin Hfa Inh INH Q6H PRN Shortness Of Breath Aspirin 81 mg 08/22/18 12:00 08/23/18 08:37 Ecotrin PO 81 mg DAILY ERIKA Administration Bisacodyl 10 mg 08/22/18 10:54 Dulcolax Supp RECTAL DAILY PRN SEVERE CONSITIPATION Budesonide/Formoterol Fumarate 2 puff 08/22/18 11:30 08/23/18 08:38 Symbicort 160/4.5 Mcg Inh INH 2 puff BID ERIKA Administration Diltiazem HCl 300 mg 08/22/18 12:00 08/23/18 08:37 Cardizem Cd 24hr PO 300 mg DAILY ERIKA Administration Enoxaparin Sodium 30 mg 08/22/18 12:15 08/23/18 08:37 Lovenox Inj SQ 30 mg DAILY ERIKA Administration Enoxaparin Sodium 40 mg 08/22/18 12:15 08/23/18 08:36 Lovenox Inj SQ Not Given DAILY ERIKA Hydrochlorothiazide 25 mg 08/22/18 12:00 08/23/18 08:37 Hydrodiuril PO 25 mg DAILY ERIKA Administration Hydrocodone Bitartrate/Ibuprofen 1 tab 08/22/18 12:35 Vicoprofen 7.5/200 Mg PO Q6H PRN PAIN SCALE 4 TO 5 MODERATE Hydrophilic Ointment 0 gm 08/22/18 21:41 08/22/18 21:55 Chapstick TOPICAL 4 gm UNSCH PRN Administration DRY LIPS Labetalol HCl 10 mg 08/22/18 11:58 Trandate Inj IV.PUSH Q4H PRN SBP>160, DBP>90 Lactulose 30 ml 08/22/18 10:54 Lactulose Liq PO DAILY PRN SEVERE CONSITIPATION Levothyroxine Sodium 125 mcg 08/23/18 06:00 08/23/18 07:10 Synthroid PO 125 mcg DAILY@0600 ERIKA Administration Morphine Sulfate 3 mg 08/22/18 12:34 Morphine Inj IV.PUSH Q4H PRN PAIN SCALE 6 TO 10 Nitroglycerin 1 inch 08/22/18 18:00 08/23/18 07:10 Nitro-Bid 2% Oint TOPICAL Not Given Q6HR ERIKA Ondansetron HCl 4 mg 08/22/18 10:54 Zofran Inj IV.PUSH Q6H PRN NAUSEA OR VOMITING Pantoprazole Sodium 40 mg 08/23/18 09:00 08/23/18 08:37 Protonix PO 40 mg DAILY ERIKA Administration Potassium Chloride 20 meq 08/22/18 12:15 08/23/18 08:37 Klor-Con 10 PO 20 meq DAILY ERIKA Administration Prednisone 5 mg 08/22/18 21:00 08/23/18 08:37 Deltasone PO 5 mg BID ERIKA Administration Sennosides 17.2 mg 08/22/18 10:54 Senokot PO Q12H PRN Moderate Constipation Sodium Chloride 2 ml 08/22/18 21:00 08/23/18 08:39 Ns Flush IV.FLUSH 2 ml BID ERIKA Administration Sodium Chloride 2 ml 08/22/18 10:54 Ns Flush IV.FLUSH PRN PRN FLUSH AFTER USING IV ACCESS Physical Exam Vital signs: Vital Signs 08/22/18 11:30 08/22/18 11:45 08/22/18 11:49 Temperature Pulse Rate 70 74 Respiratory Rate 15 16 Blood Pressure 213/96 H 179/94 H Pulse Oximetry 95 94 L 95 08/22/18 12:00 08/22/18 12:10 08/22/18 12:29 Temperature Pulse Rate 71 70 70 Respiratory Rate 15 15 Blood Pressure 178/92 H 187/98 H 159/77 H Pulse Oximetry 94 L 97 08/22/18 14:45 08/22/18 15:43 08/22/18 19:00 Temperature 98.4 F Pulse Rate 72 70 70 Respiratory Rate 15 16 Blood Pressure 129/74 135/79 Pulse Oximetry 97 96 08/22/18 19:40 08/22/18 20:18 08/22/18 21:00 Temperature 98 F 98.8 F Pulse Rate 72 69 70 Respiratory Rate 16 16 Blood Pressure 125/71 114/65 Pulse Oximetry 94 L 94 L 08/22/18 22:34 08/22/18 23:00 08/22/18 23:49 Temperature 98.8 F Pulse Rate 70 70 73 Respiratory Rate 16 Blood Pressure 162/84 H Pulse Oximetry 94 L 08/22/18 23:55 08/23/18 00:08 08/23/18 00:17 Temperature Pulse Rate 70 70 Respiratory Rate Blood Pressure 149/71 H Pulse Oximetry 08/23/18 01:00 08/23/18 02:00 08/23/18 03:00 Temperature Pulse Rate 72 70 70 Respiratory Rate 16 Blood Pressure Pulse Oximetry 08/23/18 03:43 08/23/18 04:00 08/23/18 05:00 Temperature 99 F Pulse Rate 75 99 H Respiratory Rate 16 16 Blood Pressure 149/71 H Pulse Oximetry 94 L 08/23/18 05:01 08/23/18 06:00 08/23/18 07:00 Temperature Pulse Rate 70 70 70 Respiratory Rate Blood Pressure Pulse Oximetry 08/23/18 08:28 08/23/18 08:49 08/23/18 10:11 Temperature 98.9 F 98.9 F Pulse Rate 75 70 Respiratory Rate 16 16 Blood Pressure 131/62 123/64 Pulse Oximetry 93 L 93 L 94 L 08/23/18 10:37 Temperature Pulse Rate Respiratory Rate Blood Pressure Pulse Oximetry 94 L Intake & Output 08/22/18 08/23/18 08/23/18 18:59 06:59 18:59 Intake Total 440 / 440 240 / 240 Output Total 275 / 275 Balance 440 / 440 -35 / -35 Weight 203 lb 14.841 oz Intake: Oral 440 / 440 240 / 240 Output: Urine 275 / 275 Other: Date of Last Bowel Movement 08/21/18 08/21/18 08/21/18 Weight On Admission 204 lb 12.8 oz - Constitutional no acute distress - Routine Neck Exam Present: supple - Routine Respiratory Exam Present: CTA bilaterally - Routine Cardiovascular Exam Present: RRR Comments: Soft systolic murmur - Routine Extremities Exam Comments: No edema or calf tenderness - Routine Skin Exam Present: dry, warm Results - Labs CBC & Chem 7: 08/22/18 06:00 08/23/18 06:02 Laboratory Results - last 24 hr 08/22/18 08/22/18 08/23/18 13:24 19:02 06:02 Sodium 140 Potassium 3.4 L Chloride 102 Carbon Dioxide 31.8 Anion Gap 6 BUN 26 H Creatinine 1.07 Estimated GFR 66 L Random Glucose 104 Calcium 9.1 Total Creatine Kinase 251 199 Troponin I 0.05 0.05 - Imaging Impressions Abdomen Ultrasound 08/22/18 00:00 CONCLUSION: 1. Cholelithiasis. 2. Mild hepatomegaly. 3. Echogenic kidneys raising the possibility of medical renal disease. Assessment and Plan - Assessment (1) Hypertensive urgency Code(s): I16.0 - Hypertensive urgency Status: Resolved Plan: The patient's hypertension is under good control at this time. Will continue with current medication including diltiazem and hydrochlorothiazide. He will monitor his blood pressure at home. (2) Thoracic back pain Code(s): M54.6 - Pain in thoracic spine Status: Resolved Plan: The patient's thoracic back pain has resolved. Will follow. He is recommended to reduce any strenuous activity for the next 5-7 days then increase activity slowly as tolerated. 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 Patient denies any chest pain. Patient will follow up with cardiology as an outpatient (4) COPD (chronic obstructive pulmonary disease) Code(s): J44.9 - Chronic obstructive pulmonary disease, unspecified Status: Acute (5) Hypothyroidism Code(s): E03.9 - Hypothyroidism, unspecified Status: Chronic Plan: He will continue with levothyroxine. (6) Hypokalemia Code(s): E87.6 - Hypokalemia Status: Acute Plan: Patient will be discharged home with potassium chloride ER. Will plan to repeat potassium level at follow-up visit. (2) Thoracic back pain Qualifiers: Chronicity: acute Back pain laterality: bilateral Qualified Code(s): M54.6 - Pain in thoracic spine (3) Atherosclerotic heart disease Qualifiers: Coronary Disease-Associated Artery/Lesion type: unspecified vessel or lesion type [place] vs. transplanted heart: [place] heart Associated angina: without angina Qualified Code(s): I25.10 - Atherosclerotic heart disease of [place] coronary artery without angina pectoris (5) Hypothyroidism Qualifiers: Hypothyroidism type: unspecified Qualified Code(s): E03.9 - Hypothyroidism, unspecified
--- NOTE | 2018-08-23 11:28 | P.PNCA ---
Subjective Interval history: No events overnight No complaints, up and walking Medications and Allergies Active Medications: Active Medications Acetaminophen (Tylenol) 650 mg PO Q4H PRN PRN Reason: Temp > 100.4 Al Hydroxide/Mg Hydroxide (Milk Of Magnesia Liq) 30 ml PO Q12H PRN PRN Reason: Mild Constipation Albuterol (Ventolin Hfa Inh) 2 puff INH Q6H PRN PRN Reason: Shortness Of Breath Aspirin (Ecotrin) 81 mg PO DAILY [facility] Last Admin: 08/23/18 08:37 Dose: 81 mg Bisacodyl (Dulcolax Supp) 10 mg RECTAL DAILY PRN PRN Reason: SEVERE CONSITIPATION Budesonide/Formoterol Fumarate (Symbicort 160/4.5 Mcg Inh) 2 puff INH BID [facility] Last Admin: 08/23/18 08:38 Dose: 2 puff Diltiazem HCl (Cardizem Cd 24hr) 300 mg PO DAILY [facility] Last Admin: 08/23/18 08:37 Dose: 300 mg Enoxaparin Sodium (Lovenox Inj) 30 mg SQ DAILY [facility] Last Admin: 08/23/18 08:37 Dose: 30 mg Enoxaparin Sodium (Lovenox Inj) 40 mg SQ DAILY [facility] Last Admin: 08/23/18 08:36 Dose: Not Given Hydrochlorothiazide (Hydrodiuril) 25 mg PO DAILY [facility] Last Admin: 08/23/18 08:37 Dose: 25 mg Hydrocodone Bitartrate/Ibuprofen (Vicoprofen 7.5/200 Mg) 1 tab PO Q6H PRN PRN Reason: PAIN SCALE 4 TO 5 MODERATE Hydrophilic Ointment (Chapstick) 0 gm TOPICAL UNSCH PRN PRN Reason: DRY LIPS Last Admin: 08/22/18 21:55 Dose: 4 gm Labetalol HCl (Trandate Inj) 10 mg IV.PUSH Q4H PRN PRN Reason: SBP>160, DBP>90 Lactulose (Lactulose Liq) 30 ml PO DAILY PRN PRN Reason: SEVERE CONSITIPATION Levothyroxine Sodium (Synthroid) 125 mcg PO DAILY@0600 [facility] Last Admin: 08/23/18 07:10 Dose: 125 mcg Morphine Sulfate (Morphine Inj) 3 mg IV.PUSH Q4H PRN PRN Reason: PAIN SCALE 6 TO 10 Nitroglycerin (Nitro-Bid 2% Oint) 1 inch TOPICAL Q6HR [facility] Last Admin: 08/23/18 07:10 Dose: Not Given Ondansetron HCl (Zofran Inj) 4 mg IV.PUSH Q6H PRN PRN Reason: NAUSEA OR VOMITING Pantoprazole Sodium (Protonix) 40 mg PO DAILY [facility] Last Admin: 08/23/18 08:37 Dose: 40 mg Potassium Chloride (Klor-Con 10) 20 meq PO DAILY [facility] Last Admin: 08/23/18 08:37 Dose: 20 meq Prednisone (Deltasone) 5 mg PO BID [facility] Last Admin: 08/23/18 08:37 Dose: 5 mg Sennosides (Senokot) 17.2 mg PO Q12H PRN PRN Reason: Moderate Constipation Sodium Chloride (Ns Flush) 2 ml IV.FLUSH BID [facility] Last Admin: 08/23/18 08:39 Dose: 2 ml Sodium Chloride (Ns Flush) 2 ml IV.FLUSH PRN PRN PRN Reason: FLUSH AFTER USING IV ACCESS Allergies Allergy/AdvReac Type Severity Reaction Status Date / Time clonazepam Allergy Severe Confusion Verified 05/21/18 10:07 hydromorphone Allergy Severe Hallucinati Verified 05/21/18 10:07 ons penicillin G Allergy Severe FLULIKE Verified 05/21/18 10:07 SYMPTOMS [id number] Reductase Allergy Unknown Unknown Verified 05/21/18 10:07 Inhibitor Home Medications Medication Instructions Recorded Confirmed Type albuterol sulfate 2 puff INHALATION Q6H PRN 05/21/18 08/22/18 History aspirin [Aspirin Low Dose] 81 mg PO DAILY 05/21/18 08/22/18 History buprenorphine [Butrans] 1 patch TRANSDERMAL QWEEK 05/21/18 08/22/18 History [id number] 1 cap PO HS PRN 05/21/18 08/22/18 History [Fioricet] cholecalciferol (vitamin D3) 5,000 unit PO DAILY 05/21/18 08/22/18 History [Vitamin D3] cyanocobalamin (vitamin B-12) 500 mcg PO DAILY 05/21/18 08/22/18 History denosumab [Prolia] 60 mg SUB-Q [id number] 05/21/18 08/22/18 History diltiazem HCl 300 mg PO DAILY 05/21/18 08/22/18 History fluticasone-salmeterol [Advair 1 inh INHALATION BID 05/21/18 08/22/18 History Diskus] hydrochlorothiazide 25 mg PO DAILY 05/21/18 08/22/18 History levothyroxine 125 mcg PO DAILY 05/21/18 08/22/18 History multivitamin 1 tab PO DAILY 05/21/18 08/22/18 History prednisone 5 mg PO BID 05/21/18 08/22/18 History Physical Exam Vital signs: Vital Signs 08/22/18 11:30 08/22/18 11:45 08/22/18 11:49 Temperature Pulse Rate 70 74 Respiratory Rate 15 16 Blood Pressure 213/96 H 179/94 H Pulse Oximetry 95 94 L 95 08/22/18 12:00 08/22/18 12:10 08/22/18 12:29 Temperature Pulse Rate 71 70 70 Respiratory Rate 15 15 Blood Pressure 178/92 H 187/98 H 159/77 H Pulse Oximetry 94 L 97 08/22/18 14:45 08/22/18 15:43 08/22/18 19:00 Temperature 98.4 F Pulse Rate 72 70 70 Respiratory Rate 15 16 Blood Pressure 129/74 135/79 Pulse Oximetry 97 96 08/22/18 19:40 08/22/18 20:18 08/22/18 21:00 Temperature 98 F 98.8 F Pulse Rate 72 69 70 Respiratory Rate 16 16 Blood Pressure 125/71 114/65 Pulse Oximetry 94 L 94 L 08/22/18 22:34 08/22/18 23:00 08/22/18 23:49 Temperature 98.8 F Pulse Rate 70 70 73 Respiratory Rate 16 Blood Pressure 162/84 H Pulse Oximetry 94 L 08/22/18 23:55 08/23/18 00:08 08/23/18 00:17 Temperature Pulse Rate 70 70 Respiratory Rate Blood Pressure 149/71 H Pulse Oximetry 08/23/18 01:00 08/23/18 02:00 08/23/18 03:00 Temperature Pulse Rate 72 70 70 Respiratory Rate 16 Blood Pressure Pulse Oximetry 08/23/18 03:43 08/23/18 04:00 08/23/18 05:00 Temperature 99 F Pulse Rate 75 99 H Respiratory Rate 16 16 Blood Pressure 149/71 H Pulse Oximetry 94 L 08/23/18 05:01 08/23/18 06:00 08/23/18 07:00 Temperature Pulse Rate 70 70 70 Respiratory Rate Blood Pressure Pulse Oximetry 08/23/18 08:28 08/23/18 08:49 08/23/18 10:11 Temperature 98.9 F 98.9 F Pulse Rate 75 70 Respiratory Rate 16 16 Blood Pressure 131/62 123/64 Pulse Oximetry 93 L 93 L 94 L 08/23/18 10:37 08/23/18 11:00 Temperature Pulse Rate Respiratory Rate Blood Pressure 131/72 Pulse Oximetry 94 L Intake & Output 08/22/18 08/23/18 08/23/18 18:59 06:59 18:59 Intake Total 440 / 440 240 / 240 Output Total 275 / 275 Balance 440 / 440 -35 / -35 Weight 92.5 kg Intake: Oral 440 / 440 240 / 240 Output: Urine 275 / 275 Other: Date of Last Bowel Movement 08/21/18 08/21/18 08/21/18 Weight On Admission 92.896 kg Narrative: GENERAL: SKIN: Warm and dry. HEAD: Atraumatic. Normocephalic. EYES: Pupils equal and round. No scleral icterus. No injection or drainage. ENT: No nasal bleeding or discharge. Mucous membranes pink and moist. NECK: Trachea midline. No JVD. CARDIOVASCULAR: Regular rate and rhythm. 3/6 crescendo-decrescendo murmur to the RSB RESPIRATORY: No accessory muscle use. Clear to auscultation. Breath sounds equal bilaterally. GASTROINTESTINAL: Abdomen soft, non-tender, nondistended. Hepatic and splenic margins not palpable. MUSCULOSKELETAL: Extremities without clubbing, cyanosis, or edema. No obvious deformities. NEUROLOGICAL: Awake and alert. No obvious cranial nerve deficits. Motor grossly within normal limits. Five out of 5 muscle strength in the arms and legs. Normal speech. PSYCHIATRIC: Appropriate mood and affect; insight and judgment normal. Results 08/22/18 06:00 08/23/18 06:02 Cardiac Enzymes 08/22/18 08/22/18 08/22/18 Range/Units 06:00 06:00 13:24 AST 32 33 (15-37) U/L CK-MB (CK-2) 12.0 H (0.5-3.6) ng/mL Troponin I 0.04 0.05 (0.02-0.05) ng/mL 08/22/18 Range/Units 19:02 AST (15-37) U/L CK-MB (CK-2) (0.5-3.6) ng/mL Troponin I 0.05 (0.02-0.05) ng/mL Coagulation 08/22/18 Range/Units 06:00 PT 10.7 (9.8-11.6) sec APTT 23.9 (23.4-31.7) sec CBC 08/22/18 Range/Units 06:00 WBC 5.5 (4.0-11.0) th/mm3 RBC 3.61 L (4.50-5.90) mil/mm3 Hgb 12.7 L (13.0-17.0) gm/dL Hct 36.0 L (39.0-51.0) % Plt Count 187 (150-450) th/mm3 Neut # (Auto) 2.7 (1.8-7.7) th/mm3 Lymph # (Auto) 1.9 (1.0-4.8) th/mm3 [place] # (Auto) 0.7 (0.0-0.9) th/mm3 Eos # (Auto) 0.2 (0.0-0.4) th/mm3 Baso # (Auto) 0.0 (0.0-0.2) th/mm3 Comprehensive Metabolic Panel 08/22/18 08/22/18 08/23/18 Range/Units 06:00 06:00 06:02 Sodium 143 140 (136-145) meq/L Potassium 3.4 L 3.4 L (3.5-5.1) meq/L Chloride 103 102 (98-107) meq/L Carbon Dioxide 32.4 H 31.8 (21.0-32.0) meq/L BUN 23 H 26 H (7-18) mg/dL Creatinine 0.99 1.07 (0.60-1.30) mg/dL Calcium 9.1 9.1 (8.5-10.1) mg/dL Direct Bilirubin 0.1 (0.0-0.2) mg/dL Indirect Bilirubin 0.3 (0.0-0.8) mg/dL AST 32 33 (15-37) U/L ALT 38 40 (12-78) U/L Alkaline Phosphatase 36 L 37 L (45-117) U/L Total Protein 6.6 6.7 (6.4-8.2) g/dL Albumin 3.6 3.7 (3.4-5.0) g/dL Intake and Output 08/22/18 08/23/18 08/23/18 22:59 06:59 14:59 Intake Total 440 / 440 240 / 240 Output Total 275 / 275 Balance 440 / 440 -35 / -35 Intake: Oral 440 / 440 240 / 240 Output: Urine 275 / 275 Other: Date of Last Bowel Movement 08/21/18 08/21/18 Weight 92.896 kg 92.5 kg Weight On Admission 92.896 kg - Imaging and Cardiology Imaging: Impressions Abdomen Ultrasound 08/22/18 00:00 CONCLUSION: 1. Cholelithiasis. 2. Mild hepatomegaly. 3. Echogenic kidneys raising the possibility of medical renal disease. Chest X-Ray 08/22/18 05:51 CONCLUSION: Stable single view the chest. No infiltrate or mass Thoracic Aorta CT 08/22/18 06:31 CONCLUSION: 1. Atherosclerotic change seen throughout the arterial system without a significant aneurysm or dissection seen. 2. 1.2 cm mass in the left lower lobe. There is also a smaller mass in the inferior right upper lobe. The 1.2 cm left lower lobe mass was present on prior CT examination from 2015. One could consider continued surveillance with noncontrast CT examination versus a PET scan at some point. 3. Multiple pleural plaques with coarse calcifications. The largest mass measures up to 5.9 cm. This is clearly increased in size since the prior exam. 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 The enlargement of the visualized mass confirms progression. 4. Persistent compressive changes at the L3 vertebral body. There is degenerative change in the lumbar spine. Assessment and Plan - Plan 1. Musculoskeletal back pain relieved with Toradol. 2. Hypertensive urgency, most likely driven by pain. 3. History of atrial fibrillation. 4. At least moderate aortic stenosis by exam. 5. History of pacemaker placement. RECOMMENDATIONS: 1. Mr. Ramos presented with intractable back pain, which was relieved with Toradol 2. Ultimately, I do not believe that the patient is suffering from chest pain from coronary insufficiency. He states rides a stationary bike for at least 20 minutes a day with no symptoms. From a coronary standpoint, I think no further workup is necessary at this time. 3. He did have extensive elevation of his blood pressure into the 234/109 range. This is most likely due to elevated pain. Since getting his pain under control, his blood pressure has been much more controlled. For now, I would continue him on his Cardizem CD as well as hydrochlorothiazide and asked that he watch his blood pressure at home, and if elevated, then would change his medications to further treat this. 4. By exam, he appears to be in the at least moderate aortic stenosis. Ultimately, I feel that he is asymptomatic from this and has little to do with his current admission. He has noticed some fatigue, but no chest pain, SOB, or presyncope I asked that he follow up with Dr. Blackburn for a repeat echo for further evaluation of his aortic valve. 5. He has history of atrial fibrillation with atrial fibrillation ablation. Per Dr. Blackburn notes, he has been discussed about anticoagulation, and he would like to continue on aspirin therapy. 6. Cardiovascularly stable for discharge
--- NOTE | 2018-08-23 11:29 | P.DS ---
Date of admission: 08/22/18 10:54 Primary care physician: Owen Ricks MD Attending physician on discharge: Owen Ricks Anticipated date of discharge: 08/23/18 Brief History from admission: This 83-year-old white male presented to the emergency department after he awoke at around 5 AM with severe thoracic back pain which ultimately began to radiate around to the lower chest and bilateral upper quadrants of the abdomen. He had no nausea, diaphoresis or shortness of breath. He states the pain was extremely severe. He contacted EMS and was transferred to this facility for further evaluation and treatment. In the emergency department he received a total of 8 mg of morphine sulfate IV and tramadol IM. The patient's pain did ultimately improved but his blood pressure was extremely high with systolic readings >200. His blood pressure remained markedly elevated despite IV enalapril. A CTA of the thoracic aorta was performed to rule out aortic dissection. There was no evidence of dissection. There were findings for pleural based lesions that were chronic but have increased in size and require further evaluation on outpatient basis. The patient was admitted for hypertensive urgency. He was provided with IV labetalol in the emergency department which did help with his markedly elevated blood pressure. He would be provided with IV antihypertensive medications as needed. 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 He was placed on telemetry. The patient's blood pressure was monitored closely. His usual antihypertensive medications were resumed. His blood pressure over the next 24 hours came under good control. He was seen in consultation by Dr. Ewing for cardiology who agreed with serial cardiac enzymes. The cardiac enzymes did not reveal any evidence of acute coronary ischemia. The patient does have aortic stenosis but it was felt that he was asymptomatic and could continue to be monitored on an outpatient basis with serial echocardiograms. Overnight the patient's blood pressure stabilized and was in good control. His thoracic back pain has resolved. security monitor reveals an atrial paced rhythm. On the day of discharge he was eating well and ambulating independently. He denied any back pain, chest pain, nausea, vomiting, shortness of breath, lightheadedness or dizziness. His potassium level remained low at 3.4. The patient was initiated on potassium chloride ER 20 mEq daily. He would be discharged home on the same with outpatient follow-up laboratory studies to be done within a week. The patient was discharged home in good condition. His medications are listed on the medication reconciliation. He was given instructions to contact the undersigned physician or cardiology for any recurrent markedly elevated blood pressure readings with systolic readings >160, chest pain or shortness of breath. - Time Spent with Patient Total time spent providing and/or coordinating discharge services: Less than 30 minutes - Quality: VTE Deep Vein Thrombosis/Pulmonary Embolism Present on Admission: No Exam Vital signs: Vital Signs 08/22/18 11:30 08/22/18 11:45 08/22/18 11:49 Temperature Pulse Rate 70 74 Respiratory Rate 15 16 Blood Pressure 213/96 H 179/94 H Pulse Oximetry 95 94 L 95 08/22/18 12:00 08/22/18 12:10 08/22/18 12:29 Temperature Pulse Rate 71 70 70 Respiratory Rate 15 15 Blood Pressure 178/92 H 187/98 H 159/77 H Pulse Oximetry 94 L 97 08/22/18 14:45 08/22/18 15:43 08/22/18 19:00 Temperature 98.4 F Pulse Rate 72 70 70 Respiratory Rate 15 16 Blood Pressure 129/74 135/79 Pulse Oximetry 97 96 08/22/18 19:40 08/22/18 20:18 08/22/18 21:00 Temperature 98 F 98.8 F Pulse Rate 72 69 70 Respiratory Rate 16 16 Blood Pressure 125/71 114/65 Pulse Oximetry 94 L 94 L 08/22/18 22:34 08/22/18 23:00 08/22/18 23:49 Temperature 98.8 F Pulse Rate 70 70 73 Respiratory Rate 16 Blood Pressure 162/84 H Pulse Oximetry 94 L 08/22/18 23:55 08/23/18 00:08 08/23/18 00:17 Temperature Pulse Rate 70 70 Respiratory Rate Blood Pressure 149/71 H Pulse Oximetry 08/23/18 01:00 08/23/18 02:00 08/23/18 03:00 Temperature Pulse Rate 72 70 70 Respiratory Rate 16 Blood Pressure Pulse Oximetry 08/23/18 03:43 08/23/18 04:00 08/23/18 05:00 Temperature 99 F Pulse Rate 75 99 H Respiratory Rate 16 16 Blood Pressure 149/71 H Pulse Oximetry 94 L 08/23/18 05:01 08/23/18 06:00 08/23/18 07:00 Temperature Pulse Rate 70 70 70 Respiratory Rate Blood Pressure Pulse Oximetry 08/23/18 08:28 08/23/18 08:49 08/23/18 10:11 Temperature 98.9 F 98.9 F Pulse Rate 75 70 Respiratory Rate 16 16 Blood Pressure 131/62 123/64 Pulse Oximetry 93 L 93 L 94 L 08/23/18 10:37 08/23/18 11:00 Temperature Pulse Rate Respiratory Rate Blood Pressure 131/72 Pulse Oximetry 94 L Intake & Output 08/22/18 08/23/18 08/23/18 18:59 06:59 18:59 Intake Total 440 / 440 240 / 240 Output Total 275 / 275 Balance 440 / 440 -35 / -35 Weight 203 lb 14.841 oz Intake: Oral 440 / 440 240 / 240 Output: Urine 275 / 275 Other: Date of Last Bowel Movement 08/21/18 08/21/18 08/21/18 Weight On Admission 204 lb 12.8 oz - Constitutional no acute distress - Routine Neck Exam Present: supple Comments: No lymphadenopathy, JVD or thyromegaly. No bruits - Routine Respiratory Exam Present: CTA bilaterally - Routine Cardiovascular Exam Present: RRR Comments: Soft systolic murmur present - Routine Extremities Exam Comments: No calf tenderness. No edema Results Procedures completed during hospitalization: None Labs on day of discharge: Labs from last 24 hours 08/23/18 08/22/18 08/22/18 06:02 19:02 13:24 Sodium 140 Potassium 3.4 L Chloride 102 Carbon Dioxide 31.8 Anion Gap 6 BUN 26 H Creatinine 1.07 Estimated GFR 66 L Random Glucose 104 Calcium 9.1 Total Creatine Kinase 199 251 Troponin I 0.05 0.05 - Impressions ITS Impressions Abdomen Ultrasound 08/22/18 00:00 CONCLUSION: 1. Cholelithiasis. 2. Mild hepatomegaly. 3. Echogenic kidneys raising the possibility of medical renal disease. Chest X-Ray 08/22/18 05:51 CONCLUSION: Stable single view the chest. No infiltrate or mass Thoracic Aorta CT 08/22/18 06:31 CONCLUSION: 1. Atherosclerotic change seen throughout the arterial system without a significant aneurysm or dissection seen. 2. 1.2 cm mass in the left lower lobe. There is also a smaller mass in the inferior right upper lobe. The 1.2 cm left lower lobe mass was present on prior CT examination from 2015. One could consider continued surveillance with noncontrast CT examination versus a PET scan at some point. 3. Multiple pleural plaques with coarse calcifications. The largest mass measures up to 5.9 cm. This is clearly increased in size since the prior exam. 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 The enlargement of the visualized mass confirms progression. 4. Persistent compressive changes at the L3 vertebral body. There is degenerative change in the lumbar spine. Discharge Plan - Discharge Disposition Patient Disposition: 01 Discharge Home - Discharge Condition Condition: Good - Discharge Order Discharge Orders: Discharge Order (Routine); Ordered 08/23/18 Ordered By: Owen Ricks - Physicians Team Primary Care Provider: Owen Ricks Attending Provider: Owen Ricks Other Providers: Wily Ewing DO
== END 2018-08-23 12:23 | disposition home or self-care (01) ==
LOC: NEDA 05:45 → NEPC 05:45 → HCIN 15:00 → NEDA 15:05
PROVIDERS: ADMIT Family Medicine; ATTEND Family Medicine